=== PATIENT | male | born 1940 | race Caucasian/White ===

== ENCOUNTER 2019-06-16 21:48 | Emergency (ER) | payer OTHER, SELFPAY ==
--- NOTE | 2019-06-16 22:03 | ED.GENADULT ---
HPI - General Adult General Chief complaint: Dental/Oral Stated complaint: WIRE STOCK ON TOUNGE Time Seen by Provider: 06/16/19 21:49 Source: patient Mode of arrival: Ambulatory Limitations: no limitations History of Present Illness HPI narrative: 79-year-old male here for evaluation of having a portion of the soft tissue under the left side of his tongue stuck on the wire of his dentures. Patient states that he place with his dentures with his tongue. He states he does this because there somewhat ill-fitting. This evening he got it stuck in cannot remove it on his own. Review of Systems ENT Comments: Soft tissue under tongue stuck on dentures. Cardiovascular Cardiovascular: Denies dyspnea Respiratory Respiratory: Denies dyspnea Integumentary/Breasts Skin/Breast: Denies lesions and Denies rash Patient History Surgical History No pertinent past surgical history (Acute) Social History Smoking Status: Former smoker Exam Initial Vital Signs Initial Vital Signs: Vital Signs Temperature 98.4 F 06/16/19 22:07 Pulse Rate 84 06/16/19 22:07 Respiratory Rate 20 06/16/19 22:07 Blood Pressure 190/84 H 06/16/19 22:07 Pulse Oximetry 99 06/16/19 22:07 Const General: cooperative and comfortable HENMT Mouth: moist mucous membranes and other (Portion of soft tissue under left-sided tongue stuck on denture wire) Resp Effort & Inspection: normal respiratory effort Course Vital Signs Vital signs: Vital Signs - 8 hr 06/16/19 22:07 Temperature 98.4 F Pulse Rate 84 Respiratory Rate 20 Blood Pressure 190/84 H Pulse Oximetry 99 Medical Decision Making MDM Narrative Medical decision making narrative: A portion of the soft tissue on the left side of his mouth under his tongue is stuck on 1 of the wires associated with his partial dentures. I was able to easily remove this with a pair of forceps. A relieve the patient's symptoms. We did discuss return precautions and follow-up instructions. Discharge Plan Departure Patient Disposition: Home Clinical Impression: Oral cavity pain Discharge Date/Time: 06/16/19 22:24 Activity Restrictions/Additional Instructions: Recommend that you do use some ice at home like we discussed. Contact your primary provider and your dentist for follow-up. Return to the emergency department for any new or worsening symptoms
[2019-06-16 22:07] VITALS: BP 190/84; PULSE 84; RESP 20; TEMP 36.9; O2SAT 99; BMI 28.7
--- NOTE | 2019-06-16 22:10 | PC.NURSE ---
tissue under tounge stuck in the wire that holds partial denture in. Reports he has not been able to get it out, states too much pain when trying to remove denture to free tounge tissue.
== END 2019-06-16 22:24 | disposition home or self-care (01) ==
PROVIDERS: Emergency Provider Emergency Medicine
DX: K13.79 Other lesions of oral mucosa (principal)
CPT/HCPCS: 99281; 99282

== ENCOUNTER 2022-10-16 00:04 | Emergency (ER) | payer OTHER, SELFPAY ==
[2022-10-16 00:12] VITALS: BP 191/85; PULSE 98; RESP 16; TEMP 36.4; O2SAT 95
--- NOTE | 2022-10-16 00:15 | DI.CT.S_ITS ---
PROCEDURE: CT HEAD/BRAIN WO CON INDICATIONS: fall with head injury TECHNIQUE: Noncontrast 4.5 mm thick angled axial sections acquired from the foramen magnum to the vertex, with coronal and sagittal reformats. For radiation dose reduction, the following was used: automated exposure control, adjustment of mA and/or kV according to patient size. COMPARISON: None. FINDINGS: Image quality: Excellent. CSF spaces: Basal cisterns are patent. No extra-axial fluid collections. There is mild cerebral volume loss, with resultant ventricular and sulcal prominence. Brain: No intracranial hemorrhage, mass, or mass effect. There are subcortical, periventricular and deep white matter hypodensities consistent with mild chronic small vessel ischemic changes. The ramon-white matter junction appears preserved. There is intracranial internal carotid artery atherosclerosis. Skull and face: Calvarium and visualized facial bones appear intact, without suspicious lesions. Sinuses: Visualized sinuses and mastoids are clear. IMPRESSION: 1. No acute intracranial abnormality. 2. Mild cerebral volume loss and chronic white matter small vessel ischemic changes. Dictated by: Taran Mckeon M.D. on 10/16/2022 at 1:27 Approved by: Taran Mckeon M.D. on 10/16/2022 at 1:31
--- NOTE | 2022-10-16 00:15 | DI.RAD.S_ITS ---
PROCEDURE: XR RIBS LT MIN 3V W CXR1V INDICATIONS: rib pain after fall TECHNIQUE: Two views of the left ribs were acquired, along with a single view chest. COMPARISON: None. FINDINGS: Surgical changes and devices: None. Bones and chest wall: No displaced rib fracture identified. No suspicious bony lesions. Overlying soft tissues appear unremarkable. Lungs and pleura: No pleural effusions or pneumothorax. Lungs appear clear. Mediastinum: Mediastinal contours appear normal. Heart size is normal. IMPRESSION: 1. No displaced rib fracture identified. Dictated by: Taran Mckeon M.D. on 10/16/2022 at 1:31 Approved by: Taran Mckeon M.D. on 10/16/2022 at 1:33
--- NOTE | 2022-10-16 00:19 | ED_ITS ---
HPI - Fall General Chief Complaint: Fall Stated Complaint: fell off porch and landed on cement and hit head Time Seen by Provider: 10/16/22 00:11 Source: patient and family Mode of arrival: Wheelchair History of Present Illness HPI Narrative: Patient is an 82-year-old male who is not on anticoagulation who arrives the emergency department for evaluation of injuries he sustained when he took his dog out this evening for walked before he went to bed and he was pulled over by his dog or he slept on the porch. He did land on the ground. He sustained a cut to the left side of his head. There was no loss of consciousness. Reports no other injuries from the event. He is no neck pain. Related Data Allergies Allergy/AdvReac Type Severity Reaction Status Date / Time No Known Drug Allergies Allergy Verified 10/16/22 00:15 Review of Systems Constitutional Constitutional: Reports system reviewed and no additional complaints, except as documented Musculoskeletal Musculoskeletal: Reports system reviewed and no additional complaints, except as documented Integumentary/Breasts Skin/Breast: Reports system reviewed and no additional complaints, except as documented Neurologic Neurologic: Reports system reviewed and no additional complaints, except as documented Hematologic/Lymphatic On Anticoagulants: No Patient History Surgical History No pertinent past surgical history Social History Smoking Status: Former smoker Smoking Status: Former smoker alcohol intake frequency: 0-2 drinks per day Substance Use Type: does not use Exam Initial Vital Signs Initial Vital Signs: Vital Signs Temperature 97.6 F 10/16/22 00:12 Pulse Rate 98 H 10/16/22 00:12 Respiratory Rate 16 10/16/22 00:12 Blood Pressure 191/85 H 10/16/22 00:12 Pulse Oximetry 95 10/16/22 00:12 Oxygen Delivery Method Room Air 10/16/22 00:12 Const General: cooperative, comfortable and No ill appearing HENMT Head: laceration Resp Effort & Inspection: normal respiratory effort Auscultation: clear to auscultation bilaterally Cardio Rate: regular rate Rhythm: regular rhythm GI Inspection: normal to inspection and non-distended Palpation: soft and No tender Back/Spine/Pelvis Cervical Spine: No cervical spinal tenderness Skin Other: 3 cm laceration to the lateral aspect of the right eye. No active bleeding. Neuro General: patient alert, patient awake, patient oriented x3 and moves all extremities Extrem Other: No gross deformities. Pelvis is stable. Procedures Laceration Repair Laceration 1: Site: face Side (If applicable): left Size (cm): 3 Description: linear Depth: simple, single layer Local Anesthetic: lidocaine 1% Amount of anesthesia used (mL): 5 Pre-repair: wound explored and deep structures intact Skin layer closed with: nylon Skin layer suture size: 4-0 Number of sutures: 8 Technique: simple, interrupted Scores GCS Ramon coma scale eye opening: Spontaneous [place] coma scale verbal response: Orientated Ramon coma scale motor response: Obey commands Ramon coma scale total score: 15 Nexus Score for C-Spine Focal Neurologic deficit present: No Midline spinal tenderness present: No Altered level of conciousness present: No Intoxication present: No Distracting Injury Present: No Nexus Criteria for C-spine: 0 Course Orders Ordered: ED Orders 10/16/22 00:15 CT head/brain wo con Stat XR ribs LT min 3V w CXR1V Stat Discontinued Medications Bacitracin (Bacitracin Oint 0.9 Gm Pckt) 1 applic TOP NOW ONE Stop: 10/16/22 02:04 Last Admin: 10/16/22 02:14 Dose: 1 applic Documented By: PHILIP Lidocaine HCl (Lidocaine 2% Inj Sdv 5ml) 5 ml INJ INTRA-OP ONE Stop: 10/16/22 00:21 Last Admin: 10/16/22 00:28 Dose: 5 ml Documented By: SEDRICK Vital Signs Vital signs: Vital Signs - 8 hr 10/16/22 00:12 10/16/22 02:22 Temperature 97.6 F Pulse Rate 98 H 111 H Respiratory Rate 16 18 Blood Pressure 191/85 H 167/71 H Pulse Oximetry 95 94 Oxygen Delivery Method Room Air Room Air MDM - Fall Imaging Data CT scan - head: Radiologist's Impression: PROCEDURE:? CT HEAD/BRAIN WO CON ? INDICATIONS:? fall with head injury ? TECHNIQUE:? Noncontrast 4.5 mm thick angled axial sections acquired from the foramen magnum to the vertex, with coronal and sagittal reformats.? For radiation dose reduction, the following was used:? automated exposure control, adjustment of mA and/or kV according to patient size.? ? COMPARISON:? None. ? FINDINGS:? Image quality:? Excellent.? ? CSF spaces:? Basal cisterns are patent.? No extra-axial fluid collections.? There is mild cerebral volume loss, with resultant ventricular and sulcal prominence.? ? Brain:? No intracranial hemorrhage, mass, or mass effect.? There are subcortical, periventricular and deep white matter hypodensities consistent with mild chronic small vessel ischemic changes.? The ramon-white matter junction appears preserved.? There is intracranial internal carotid artery atherosclerosis.? ? Skull and face:? Calvarium and visualized facial bones appear intact, without suspicious lesions.? ? Sinuses:? Visualized sinuses and mastoids are clear.? ? IMPRESSION:? ? 1. No acute intracranial abnormality. ? 2. Mild cerebral volume loss and chronic white matter small vessel ischemic changes.? Rib x-ray: Radiologist's Impression: PROCEDURE:? XR RIBS LT MIN 3V W CXR1V ? INDICATIONS:? rib pain after fall ? TECHNIQUE:? Two views of the left ribs were acquired, along with a single view chest.? ? COMPARISON:? None. ? FINDINGS:? ? Surgical changes and devices:? None.? ? Bones and chest wall:? No displaced rib fracture identified.? No suspicious bony lesions. ?Overlying soft tissues appear unremarkable.? ? Lungs and pleura:? No pleural effusions or pneumothorax.? Lungs appear clear.? ? Mediastinum:? Mediastinal contours appear normal.? Heart size is normal.? ? IMPRESSION:? ? 1. No displaced rib fracture identified. MDM Narrative Medical decision making narrative: Head and rib x-rays are negative. Cervical spine was cleared by nexus criteria. The laceration above his left eye was closed as described above. He was given care instructions and return precautions for this. This was a mechanical fall. Hold on further workup for now. He was given return precautions. He expressed understanding and agreement. Discharge Plan Departure Patient Disposition: Home Clinical Impression: Contusion of rib, Fall, Laceration Instructions: DI for Laceration Repair, DI for Rib Contusion Activity Restrictions/Additional Instructions: The stitches do need to be removed in the next 7-10 days. You can either contact your primary doctor or go to the walk-in clinic or return to the emergency department for this. Until then I would recommend that you cover the area with an antibiotic ointment. You can use a bandage as needed. You can shower like normal. Return to the emergency department for new or worsening symptoms. Stand Alone Forms: Patient Portal/API
[2022-10-16] MEDS: LIDOCAINE 2% INJ SDV 5ML 5 ML INJ (00:28)
[2022-10-16] MEDS: BACITRACIN OINT 0.9 GM PCKT 1 APPLIC TOP (02:14)
[2022-10-16 02:21] VITALS: BMI 31.5
[2022-10-16 02:22] VITALS: BP 167/71; PULSE 111; RESP 18; O2SAT 94
== END 2022-10-16 02:22 | disposition home or self-care (01) ==
PROVIDERS: Emergency Provider Emergency Medicine
DX: S01.112A Laceration without foreign body of left eyelid and periocular area, initial encounter (principal); S20.212A Contusion of left front wall of thorax, initial encounter; W17.89XA Other fall from one level to another, initial encounter
CPT/HCPCS: 12013; 70450; 71101; 99282; 99284